=== PATIENT | male | born 1940 | race African-American/Black ===

== ENCOUNTER → 2018-11-05 | Outpatient (CLI) | payer MEDICARE ==
[2015-01-17 18:00] VITALS: BP 176/93
[~2018-11-05] MED LIST: AMLO5TAB4 PO; DOCU50CA9 PO; HYDR-3165 PO; LEVO100T5 PO; LEVO25TA4 PO; LISI-130 PO; NAPR220C4 PO; NAPR375T5 PO; OXYC1TAB15 PO
--- NOTE | 2018-11-05 15:01 | KCIC ---
Ankle brachial indices HISTORY: Leg pain. FINDINGS: Right NICHOL is 1.06. Left NICHOL is 1.09. IMPRESSION: Ankle-brachial indices are within normal limits. Electronically signed by: Leonard Page MD (11/05/2018 2:58 PM) [facility]-[id number]
== END | disposition home or self-care (01) ==
LOC: KCIC US 13:48
PROVIDERS: ATTEND Family Medicine
DX: M79.605 Pain in left leg (principal)
CPT/HCPCS: 93922

== ENCOUNTER → 2020-07-12 | Outpatient (CLI) | payer MEDICARE ==
[2015-01-17 18:00] VITALS: BP 176/93
--- NOTE | 2020-07-12 10:40 | KCIC ---
L spine 5 views INDICATION: Chronic low back pain and bilateral hip pain with sciatica on the right side COMPARISON: L-spine MRI of 09/26/2013 FINDINGS: Standing lateral, standing coned-down lateral, standing bilateral oblique and AP views of the lumbar spine were obtained These show 5 lumbar type vertebrae in near anatomic alignment with mild loss of normal lumbar lordosi s, similar to prior. No listhesis is apparent. The vertebral body heights are preserved but the disc spaces show narrowing at L5-S1 and at L4-L5. In addition, there is facet hypertrophy at multiple leve ls in the lumbar spine, notably at L4-5 and L5-S1. The spinous processes also appear in contact at mu ltiple levels in the lumbar spine. Soft tissues show scattered aortic calcifications. The oblique views show no evidence of pars defects although evaluation is limited by bulky facet hypertrophic change. IMPRESSION: Lower lumbar spinal degenerative changes notably at L4-L5 and L5-S1 with facet hypertrophic change li luzmaria resulting in foraminal stenoses and possible central canal stenosis as well. Cannot exclude Baas trup phenomena either. Alignment remains similar to prior. Electronically signed by: Soledad Abreu MD (07/12/2020 10:37 AM) [id number]
== END ==
LOC: KCIC 08:49
PROVIDERS: ATTEND Family Medicine
DX: M47.817 Spondylosis without myelopathy or radiculopathy, lumbosacral region (principal); G89.29 Other chronic pain; M25.511 Pain in right shoulder; M25.512 Pain in left shoulder
CPT/HCPCS: 72110

== ENCOUNTER → 2020-07-24 | Outpatient (CLI) | payer MEDICARE ==
[2015-01-17 18:00] VITALS: BP 176/93
--- NOTE | 2020-07-24 14:03 | KCIC ---
XR FOOT_LEFT 3 VIEWS 07/24/2020 8:55 AM INDICATION: Primary osteoarthritis COMPARISON: None available. TECHNIQUE: 3 views of the left foot are provided. FINDINGS/ IMPRESSION: Bunionectomy changes are identified with 2 screws identified at the head of the first metatarsal. Mod erate osteoarthrosis of the first metatarsophalangeal joint with joint space narrowing, subcortical s clerosis and marginal osteophytosis. Posterior and plantar calcaneal enthesophytes are present. No ac [place] fracture or dislocation. 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 Mild interpha langeal osteoarthrosis. Pes planus. Bone mineralization is within normal limits. Electronically signed by: Krystal Soto MD (07/24/2020 2:00 PM) [id number]
--- NOTE | 2020-07-24 14:04 | KCIC ---
XR SHOULDER 2+ VIEWS 07/24/2020 8:55 AM INDICATION: Bilateral shoulder pain COMPARISON: None available. TECHNIQUE: 3 views of the right and 3 views the left shoulder are provided. FINDINGS/ IMPRESSION: There is no acute fracture or dislocation. Mild left acromioclavicular osteoarthrosis with inferiorly projecting osteophyte. Otherwise, glenohumeral joint spaces are maintained as well as right acromioc lavicular joint space. There may be minimal sclerosis along the superolateral margin of the right hum eral head suggestive of chronic rotator cuff arthropathy. Bone mineralization is within normal limits . Regional soft tissues are within normal limits. There is no soft tissue gas or osseous erosion. No radiopaque foreign body. Electronically signed by: Krystal Soto MD (07/24/2020 2:02 PM) [id number]
--- NOTE | 2020-07-24 15:42 | KCIC ---
XR KNEE 3 VIEWS 07/24/2020 8:55 AM INDICATION: Bilateral knee pain, worsening COMPARISON: None available. TECHNIQUE: 3 views of the right and 3 views left knee are provided. 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 There may be small bilateral knee joint effusions, although evaluation is limited by patient positioning. Patellar resurfacing is noted. Ossific bodies identified within the suprapatellar joint space of the left knee. There is no lucency surrounding the hardware. No evidence for hardware failure. No acute f racture or dislocation. Electronically signed by: Krystal Soto MD (07/24/2020 3:40 PM) [id number]
== END ==
LOC: KCIC 08:46
PROVIDERS: ATTEND Family Medicine
DX: M19.012 Primary osteoarthritis, left shoulder (principal); M19.011 Primary osteoarthritis, right shoulder; M25.462 Effusion, left knee; M25.461 Effusion, right knee; M19.072 Primary osteoarthritis, left ankle and foot
CPT/HCPCS: 73630; 73562-50